=== PATIENT | female | born 1960 | race Caucasian/White ===

== ENCOUNTER 2017-03-24 10:20 | Outpatient (CLI) | payer OTHER ==
--- NOTE | 2017-03-24 13:27 | MRI Report ---
EXAM: RIGHT SHOULDER MRI ARTHROGRAM WITH CONTRAST EXAM DATE: 03/24/2017 10:46 AM. CLINICAL HISTORY: RT SHOULDER PAIN W/MASS. COMPARISON: None. TECHNIQUE: Multiplanar, multisequence T1-weighted and fluid-sensitive sequences of the shoulder after an arthrographic injection of dilute gadolinium, dictated under a separate exam. Other: None. FINDINGS: Rotator cuff: Moderate thickening and increased intrasubstance signal involving the distal supraspina tus and infraspinatus. No discrete rotator cuff tear identified. No rotator cuff muscle atrophy or fa tty replacement. Long head biceps tendon: Intact demonstrating normal course, signal and morphology. Labrum: Intact. No tear identified. Bones and articular surfaces: Intact. No significant articular cartilage defect. Acromial clavicular joint: Moderate degenerative change. Diverticula acromion. IMPRESSION: 1. Moderate supraspinatus and infraspinatus tendinosis. 2. Moderate degenerative change at the acromioclavicular joint. [facility] MUSCULOSKELETAL RADIOLOGY SECTION Referring Provider Line: [phone] SITE ID: [id number]
--- NOTE | 2017-03-28 10:27 | XRAY Report ---
RIGHT SHOULDER ARTHROGRAM NEEDLE PLACEMENT: 03/24/2017 CLINICAL HISTORY: Right shoulder pain. TECHNIQUE: A PAR conference was held and informed consent was obtained. The patient's right shoulder was sterilely prepped with Chloraprep. Sterile technique was used throughout the exam. 5 mL of 1% Xylocaine was used for local anesthesia in the skin and subcutaneous tissues of the right shoulder. Under fluoroscopic guidance, a 22-gauge 2.5 inch spinal needle was placed into the right shoulder joint. 0.5 mL of Conray 300 was placed into the right shoulder joint to verify the needle was within it. Once the needle position was documented in the right shoulder joint, 10 mL of a mixture containing 10 mL of Conray 300, 10 mL of 1% Xylocaine, and 0.1 mL of gadolinium was placed into the right shoulder joint. The needle was then removed. The patient was sent to the MRI suite for the right shoulder MRI arthrogram imaging. FLUORO TIME WAS 1 MINUTE 27 SECONDS. NUMBER OF IMAGES 1 IMAGE. IMPRESSION: SUCCESSFUL RIGHT SHOULDER ARTHROGRAM. YINA
== END 2017-03-24 10:21 | disposition home or self-care (01) ==
LOC: DI 10:20
DX: M19.011 Primary osteoarthritis, right shoulder (principal); M67.911 Unspecified disorder of synovium and tendon, right shoulder
CPT/HCPCS: 23350; 73222; 77002; Q9961

== ENCOUNTER 2017-09-17 10:57 | Emergency (ER) | payer OTHER ==
[2017-09-17 12:04] LABS: BILIRUBIN,URINE NEGATIVE (NEGATIVE); PH,URINE 6.5 PH (5.0-7.5)
[2017-09-17 12:05] LABS: UA CHARGE (STRIP ONLY) YES; UR CULTURE IF IND NOT INDICATED
[2017-09-17] MEDS ORDERED: ACETAMINOPHEN 1,000 MG/100 ML 100 ML IV STA (12:57)
--- NOTE | 2017-09-17 12:57 | ED Physician Documentation ---
History of Present Illness - Stated complaint Stated Complaint: ABD PX - Chief complaint Chief Complaint: Abd Pain - Additonal information Additional information: hx from pt dx diverticulitis by non con CT 3 weeks ago took cirpo flagyl pain gone now sx returned LLQ pain no fever no NVD no bloody stool pshx hyst Review of Systems Constitutional: denies: Fever, Chills Cardiac: denies: Chest pain / pressure Respiratory: denies: Dyspnea GI: reports: Abdominal Pain. 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, LEEP (Cervical surgery) HEENT: Tonsil/Adenoidectomy - Present Medications Home Medications: Ambulatory Orders Medication Instructions Recorded Confirmed Atorvastatin Calcium [Lipitor] 20 mg PO DAILY 11/02/15 09/17/17 Epinephrine [Epipen 2-Saman] 1 unit IM PRN PRN 11/02/15 09/17/17 Loratadine [Claritin] 10 mg PO DAILY 11/02/15 09/17/17 Methotrexate 2.5 mg PO DAILY 11/02/15 09/17/17 [place]-3/Dha/Epa/Fish Oil [Fish Oil 1 tab PO DAILY 11/02/15 09/17/17 [place]-3 Softgel] Venlafaxine [Effexor] 75 mg PO DAILY 11/02/15 09/17/17 raNITIdine [Zantac] 150 mg PO DAILY 11/02/15 09/17/17 Estrogens, Conjugated [Premarin] 0.625 mg PO DAILY 08/29/17 09/17/17 Folic Acid 3 tab PO DAILY 08/29/17 09/17/17 metFORMIN [Glucophage] 1,000 mg PO DAILY 08/29/17 09/17/17 Ciprofloxacin HCl [Cipro] 500 mg PO BID #20 tablet 09/17/17 Docusate Sodium 250Mg Capsule 250 mg PO DAILY #30 capsule 09/17/17 [Colace 250Mg Capsule] Metronidazole [Flagyl] 500 mg PO BID #20 tablet 09/17/17 Saccharomyces Boulardii [Florastor] 500 mg PO BID #40 capsule 09/17/17 - Allergies Allergies/Adverse Reactions: Allergies Allergy/AdvReac Type Severity Reaction Status Date / Time codeine Allergy Unknown Verified 09/17/17 11:02 iodine Allergy Anaphylaxis Verified 09/17/17 11:02 naproxen Allergy Hives Verified 09/17/17 11:02 shellfish derived Allergy Anaphylaxis Verified 09/17/17 11:02 - Social History Does the pt smoke?: No Smoking Status: Never smoker Does the pt drink ETOH?: Yes Does the pt have substance abuse?: No PD ED PE NORMAL - Vitals Vital signs reviewed: Yes - General General: Alert and oriented X 3 - Neck Neck: Supple, no meningeal sign - Cardiac Cardiac: RRR - Respiratory Respiratory: No respiratory distress, Clear bilaterally - Abdomen Abdomen: Soft, Other (TTP across lower abd L > R with guarding and some rebound) - Derm Derm: Normal color - Neuro Neuro: Alert and oriented X 3 Results - Vitals Vitals: Vital Signs - 24 hr 09/17/17 09/17/17 09/17/17 10:59 12:37 14:46 Temperature 36.5 C Heart Rate 84 85 69 Respiratory 16 16 16 Rate Blood Pressure 153/90 H 144/91 H 127/76 O2 Saturation 99 99 96 Oxygen O2 Source Room air - Labs Labs: Laboratory Tests 09/17/17 09/17/17 09/17/17 11:55 12:45 12:45 WBC 10.7 RBC 4.75 Hgb 13.5 Hct 40.8 MCV 85.9 MCH 28.4 MCHC 33.0 RDW 14.9 Plt Count 321 MPV 7.3 L Neut # 8.1 H Lymph # 1.9 Peach # 0.6 Eos # 0.1 Baso # 0.0 Absolute Nucleated RBC 0.01 Nucleated RBC % 0.0 Sodium 137 Potassium 3.9 Chloride 100 L Carbon Dioxide 25 Anion Gap 12.0 BUN 12 Creatinine 0.7 Estimated GFR (MDRD) 87 L Glucose 98 Calcium 9.8 Total Bilirubin 1.1 H AST 25 ALT 35 Alkaline Phosphatase 55 Total Protein 7.9 Albumin 4.7 Globulin 3.2 Albumin/Globulin Ratio 1.5 Lipase 29 Urine Color YELLOW Urine Clarity CLEAR Urine pH 6.5 Ur Specific [place] <=1.005 Urine Protein NEGATIVE Urine Glucose (UA) NEGATIVE Urine Ketones NEGATIVE Urine Occult Blood NEGATIVE Urine Nitrite NEGATIVE Urine Bilirubin NEGATIVE Urine Urobilinogen 0.2 (NORMAL) Ur Leukocyte Esterase NEGATIVE Ur Microscopic Review NOT INDICATED Urine Culture Comments NOT INDICATED Departure - Departure Disposition: 01 Home, Self Care Clinical Impression: Diverticulitis of gastrointestinal tract Condition: Good Instructions: ED Diverticulitis Follow-Up: Junior Kinsey MD [Primary Care Provider] - Prescriptions: Ciprofloxacin HCl [Cipro] 500 mg PO BID #20 tablet Docusate Sodium 250Mg Capsule [Colace 250Mg Capsule] 250 mg PO DAILY #30 capsule Metronidazole [Flagyl] 500 mg PO BID #20 tablet Saccharomyces Boulardii [Florastor] 500 mg PO BID #40 capsule Comments: The CT scan shows you still have some diverticulitis - but no abscess or perforation. So you do not need to be admitted to the hospital or have surgery It is OK for you to go home on antibiotics again - because you take methotrexate , the only antibiotic combination that would not interact was cipro and flagyl again. Cipro can have some serious side effects including nerve and tendon injuries - so please avoid strenuous exercise and if you develop any unusual pain or joint problems, stop the cipro and seek medical attention Recommend a clear liquid diet for 48 hr to rest your bowels and then a bland diet without any small hard crunchy foods such as popcorn, raw carrots, tortilla chips and seeds. A stool softener will help ease stress on your colon as well. Tylenol as needed for the pain Follow up with your PMD for a recheck within a week, You should also get a colonoscopy of you have not had one previously Return if worse
[2017-09-17 13:07] LABS: BASOPHILS % (AUTO) 0.3 %; EOSINOPHILS # (AUTO) 0.1 10^3/uL (0.0-0.7); EOSINOPHILS % (AUTO) 0.7 %; HCT - HEMATOCRIT 40.8 % (37.0-47.0); HGB - HEMOGLOBIN 13.5 g/dL (12.0-16.0); LYMPHOCYTES # (AUTO) 1.9 10^3/uL (1.5-3.5); LYMPHOCYTES % (AUTO) 18.1 %; MEAN CORPUSCULAR HEMOGLOBIN 28.4 pg (27.0-31.0); MEAN CORPUSCULAR VOLUME 85.9 fL (81.0-99.0); MEAN PLATELET VOLUME 7.3 fL (7.9-10.8); MONOCYTES # (AUTO) 0.6 10^3/uL (0.0-1.0); MONOCYTES % (AUTO) 5.3 %; NEUTROPHILS # (AUTO) 8.1 10^3/uL (1.5-6.6); NEUTROPHILS % (AUTO) 75.6 %; RED BLOOD COUNT 4.75 10^6/uL (4.20-5.40); RED CELL DISTRIBUTION WIDTH 14.9 % (12.0-15.0); UNCORRECTED WHITE BLOOD COUNT 10.7 x10^3/uL; WHITE BLOOD COUNT 10.7 x10^3/uL (4.8-10.8)
[2017-09-17] MEDS ORDERED: ACETAMINOPHEN 1,000 MG/100 ML 100 ML IV ONE (13:09)
[2017-09-17 13:21] LABS: ALBUMIN/GLOBULIN RATIO 1.5 (1.0-2.2); BILIRUBIN,TOTAL 1.1 mg/dL (0.2-1.0); CALCIUM 9.8 mg/dL (8.5-10.3); CREATININE 0.7 mg/dL (0.4-1.0); POTASSIUM 3.9 mmol/L (3.5-5.0); TOTAL PROTEIN 7.9 g/dL (6.7-8.2)
[2017-09-17 14:47] VITALS: BP 127/76
--- NOTE | 2017-09-17 14:55 | CT Preliminary Report ---
Exam: CT ABDOMEN/PELVIS W/O IMPRESSION: 1. There is distal colon diverticulosis and possible mild diverticulitis. The CT appearance of the di stal colon is improved as compared to prior study. There is no evidence of perforation or pericolonic abscess. 2. Otherwise negative noncontrast CT of the abdomen and pelvis. SITE ID: [id number]
--- NOTE | 2017-09-17 14:58 | CT Report ---
EXAM: CT ABDOMEN AND PELVIS EXAM DATE: 09/17/2017 02:35 PM. CLINICAL HISTORY: Left lower quadrant pain. COMPARISONS: 08/29/2017. TECHNIQUE: Routine axial helical CT imaging was performed through the abdomen and pelvis without IV c ontrast. Reconstructions: Coronal and sagittal. In accordance with CT protocol optimization, one or more of the following dose reduction techniques w ere utilized for this exam: automated exposure control, adjustment of mA and/or KV based on patient s ize, or use of iterative reconstructive technique. FINDINGS: Lung Bases: Unremarkable. Abdominal Organs: Noncontrast images of the abdominal organs are grossly unremarkable. Gallbladder/bile ducts: No significant abnormalities. Peritoneal Cavity: There is distal colon diverticulosis. There is a small amount of fluid within the low left paracolic gutter (image 58 series 3). There is some mild fat stranding adjacent to the mid s igmoid colon. There is no evidence of pericolonic abscess. No intraperitoneal free air. No enlarged m esenteric or retroperitoneal lymph nodes. The appendix is normal. Pelvic Organs: No bladder stones or wall thickening. Noncontrast images of the visualized pelvic orga ns are unremarkable. Vasculature: Unremarkable. Other: There is a small fat-containing supraumbilical hernia. No evidence of associated inflammation. There are anterior peritoneum surgical clips. IMPRESSION: 1. There is distal colon diverticulosis and possible mild diverticulitis. The CT appearance of the di stal colon is improved as compared to prior study. There is no evidence of perforation or pericolonic abscess. 2. Otherwise negative noncontrast CT of the abdomen and pelvis. Referring Provider Line: [phone] SITE ID: [id number]
== END 2017-09-17 15:48 | disposition home or self-care (01) ==
LOC: ED 10:57
DX: K57.92 Diverticulitis of intestine, part unspecified, without perforation or abscess without bleeding (principal); I10 Essential (primary) hypertension; E78.00 Pure hypercholesterolemia, unspecified; E11.9 Type 2 diabetes mellitus without complications; Z79.84 Long term (current) use of oral hypoglycemic drugs
CPT/HCPCS: 36415; 74176; 80053; 81003; 83690; 85025; 96365; 99283; 99284; J0131; 81001; 87086

== ENCOUNTER 2017-10-03 07:37 | Day surgery (SDC) | payer OTHER ==
[2017-10-03] MEDS ORDERED: LACTATED RINGERS 1,000 ML IV ONE (07:47)
[2017-10-03] MEDS ORDERED: ceFAZolin 2 GM/50 ML 2 GM/50 ML BAG IV ONE (07:50)
[2017-10-03 07:55] VITALS: BP 127/79
== END 2017-10-03 07:38 | disposition home or self-care (01) ==
LOC: SDS 07:37
PROVIDERS: ATTEND Orthopaedic Surgery
DX: Z53.9 Procedure and treatment not carried out, unspecified reason (principal)

== ENCOUNTER 2019-01-08 11:03 | Emergency (ER) | payer OTHER ==
[2019-01-08 12:02] LABS: BILIRUBIN,URINE NEGATIVE (NEGATIVE); GLUCOSE, URINE (UA) NEGATIVE (NEGATIVE); KETONES,URINE (UA) NEGATIVE (NEGATIVE); LEUKOCYTE ESTERASE, URINE SMALL (NEGATIVE); NITRITE,URINE POSITIVE (NEGATIVE); OCCULT BLOOD,URINE LARGE (NEGATIVE); PH,URINE 6.5 PH (5.0-7.5); PROTEIN,URINE TRACE mg/dL (NEGATIVE); UROBILINOGEN,URINE 0.2 (NORMAL) E.U./dL (NORMAL)
[2019-01-08 12:05] LABS: CLARITY,URINE CLOUDY (CLEAR)
[2019-01-08 12:14] LABS: RBC,URINE TNTC /HPF (0-5); SQUAMOUS EPITHELIAL CELL,UR FEW Squamous (<= Few)
[2019-01-08 12:15] LABS: BACTERIA,URINE Few /HPF (None Seen)
--- NOTE | 2019-01-08 13:47 | ED Physician Documentation ---
History of Present Illness - Stated complaint Stated Complaint: FEMALE - Chief complaint Chief Complaint: UTI - History obtained from History obtained from: Patient - History of Present Illness Timing: Today Pain level max: 0 Pain level now: 0 - Additonal information Additional information: 58-year-old female presents to the emergency department with cough congestion and body aches for the past 4 days. This morning noted dysuria, urinary frequency and blood in the urine. Has had her flu shot this year. Nothing makes it better or worse. Review of Systems Constitutional: reports: Chills. 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: Hysterectomy, LEEP (Cervical surgery) HEENT: Tonsil/Adenoidectomy - Present Medications Home Medications: Ambulatory Orders Medication Instructions Recorded Confirmed Atorvastatin Calcium [Lipitor] 40 mg PO DAILY 11/02/15 01/08/19 EPINEPHrine [Epipen 2-Saman] 1 unit IM PRN PRN 11/02/15 01/08/19 Loratadine [Claritin] 10 mg PO DAILY 11/02/15 01/08/19 Methotrexate 25 mg PO DAILY 11/02/15 01/08/19 [place]-3/Dha/Epa/Fish Oil [Fish Oil 1 tab PO DAILY 11/02/15 01/08/19 [place]-3 Softgel] Venlafaxine [Effexor] 75 mg PO DAILY 11/02/15 01/08/19 Estrogens, Conjugated [Premarin] 0.625 mg PO DAILY 08/29/17 01/08/19 Folic Acid 3 tab PO DAILY 08/29/17 01/08/19 Cephalexin [Keflex] 500 mg PO Q6H #20 capsule 01/08/19 Phenazopyridine HCl [Pyridium] 200 mg PO TID PRN #6 tablet 01/08/19 Pioglitazone [Actos] 1 tab PO DAILY 01/08/19 01/08/19 - Allergies Allergies/Adverse Reactions: Allergies Allergy/AdvReac Type Severity Reaction Status Date / Time codeine Allergy Unknown Verified 01/08/19 11:09 iodine Allergy Anaphylaxis Verified 01/08/19 11:09 naproxen Allergy Hives Verified 01/08/19 11:09 shellfish derived Allergy Anaphylaxis Verified 01/08/19 11:09 - Social History Does the pt smoke?: No Smoking Status: Never smoker Does the pt drink ETOH?: Yes Does the pt have substance abuse?: No - Immunizations Immunizations are current?: Yes - POLST Patient has POLST: No PD ED PE NORMAL - Vitals Vital signs reviewed: Yes - General General: Alert and oriented X 3, No acute distress - HEENT HEENT: Moist mucous membranes, Pharynx benign - Neck Neck: Supple, no meningeal sign - Cardiac Cardiac: RRR, Strong equal pulses - Respiratory Respiratory: No respiratory distress, Clear bilaterally - Abdomen Abdomen: Soft, Non tender, Non distended - Back Back: No CVA TTP - Derm Derm: Warm and dry - Neuro Neuro: Alert and oriented X 3 Results - Vitals Vitals: Vital Signs - 24 hr 01/08/19 11:07 Temperature 36.8 C Heart Rate 78 Respiratory 18 Rate Blood Pressure 159/83 H O2 Saturation 99 Oxygen O2 Source Room air - Labs Labs: Laboratory Tests 01/08/19 01/08/19 11:14 11:24 Urine Color YELLOW Urine Clarity CLOUDY Urine pH 6.5 Ur Specific [place] 1.020 Urine Protein TRACE Urine Glucose (UA) NEGATIVE Urine Ketones NEGATIVE Urine Occult Blood LARGE H Urine Nitrite POSITIVE H Urine Bilirubin NEGATIVE Urine Urobilinogen 0.2 (NORMAL) Ur Leukocyte Esterase SMALL H Urine RBC TNTC H Urine WBC 11-25 H Ur Squamous Epith Cells FEW Squamous Urine Bacteria Few Ur Microscopic Review INDICATED Urine Culture Comments INDICATED Influenza A (Rapid) Negative Influenza B (Rapid) Negative PD MEDICAL DECISION MAKING - ED course Complexity details: reviewed results, considered differential, d/w patient ED course: 58-year-old female with a viral syndrome as well as a UTI. Will place on antibiotics for the UTI. No evidence of pyelonephritis. Patient is well- appearing, nontoxic. Patient counseled regarding signs and symptoms for which I believe and urgent re-evaluation would be necessary. Patient with good understanding of and agreement to plan and is comfortable going home at this time This document was made in part using voice recognition software. While efforts are made to proofread this document, sound alike and grammatical errors may occur. Departure - Departure Disposition: Home, Self Care Clinical Impression: Viral syndrome UTI (urinary tract infection) Qualifiers: Urinary tract infection type: acute cystitis Hematuria presence: with hematuria Qualified Code(s): N30.01 - Acute cystitis with hematuria Condition: Good Instructions: ED UTI Cystitis Female, ED Viral Syndrome Follow-Up: TG HARKINS DO [Primary Care Provider] - Within 1 week Prescriptions: Cephalexin [Keflex] 500 mg PO Q6H #20 capsule Phenazopyridine HCl [Pyridium] 200 mg PO TID PRN #6 tablet PRN Reason: dysuria Comments: Return if you worsen. Take all anitbiotics until gone.
[2019-01-08 13:54] VITALS: BP 148/80
== END 2019-01-08 13:53 | disposition home or self-care (01) ==
LOC: ED 11:03
DX: N30.01 Acute cystitis with hematuria (principal); B34.9 Viral infection, unspecified; I10 Essential (primary) hypertension; E11.9 Type 2 diabetes mellitus without complications
CPT/HCPCS: 81001; 81003; 87077; 87086; 87181; 87275; 87276; 99283

== ENCOUNTER 2019-06-16 11:58 | Emergency (ER) | payer OTHER ==
[2019-06-16 12:40] VITALS: BP 174/82
--- NOTE | 2019-06-16 16:10 | ED Physician Documentation ---
PD HPI NECK PAIN - Stated complaint Stated Complaint: NECK PAIN - Chief complaint Chief Complaint: General - History obtained from History obtained from: Patient - History of Present Illness Timing - onset: Other (She woke with right-sided neck pain about 5 days ago which then progressed with pain down towards the right shoulder and has difficulty with rotation of the neck. She is been taking naproxen with partial but incomplete relief. She denies weakness, numbness, tingling of the arms. No fevers. No facial pain. 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, LEEP (Cervical surgery) HEENT: Tonsil/Adenoidectomy - Present Medications Home Medications: Ambulatory Orders Medication Instructions Recorded Confirmed Atorvastatin Calcium [Lipitor] 40 mg PO DAILY 11/02/15 01/08/19 EPINEPHrine [Epipen 2-Saman] 1 unit IM PRN PRN 11/02/15 01/08/19 Loratadine [Claritin] 10 mg PO DAILY 11/02/15 01/08/19 Methotrexate 25 mg PO DAILY 11/02/15 01/08/19 [place]-3/Dha/Epa/Fish Oil [Fish Oil 1 tab PO DAILY 11/02/15 01/08/19 [place]-3 Softgel] Venlafaxine [Effexor] 75 mg PO DAILY 11/02/15 01/08/19 Estrogens, Conjugated [Premarin] 0.625 mg PO DAILY 08/29/17 01/08/19 Folic Acid 3 tab PO DAILY 08/29/17 01/08/19 Cephalexin [Keflex] 500 mg PO Q6H #20 capsule 01/08/19 Phenazopyridine HCl [Pyridium] 200 mg PO TID PRN #6 tablet 01/08/19 Pioglitazone [Actos] 1 tab PO DAILY 01/08/19 01/08/19 Cyclobenzaprine [Flexeril] 10 mg PO TID PRN #20 tablet 06/16/19 predniSONE [Deltasone] 20 mg PO [id number] #21 tab 06/16/19 - Allergies Allergies/Adverse Reactions: Allergies Allergy/AdvReac Type Severity Reaction Status Date / Time codeine Allergy Unknown Verified 06/16/19 12:40 iodine Allergy Anaphylaxis Verified 06/16/19 12:40 naproxen Allergy Hives Verified 06/16/19 12:40 shellfish derived Allergy Anaphylaxis Verified 06/16/19 12:40 - Social History Does the pt smoke?: No Smoking Status: Never smoker Does the pt drink ETOH?: Yes Does the pt have substance abuse?: No - Immunizations Immunizations are current?: Yes - POLST Patient has POLST: No PD ED PE NORMAL - Vitals Vital signs reviewed: Yes - General General: Alert and oriented X 3, No acute distress - Neck Neck: No bony TTP (Right-sided sternocleidomastoid tenderness and difficulty with rotation of the neck but not flexion or extension of the neck. She has equal bilateral upper extremity supervisor inspection strength, flexion extension of the wrist, thumb extension, and interosseous strength. Normal and symmetric sensation throughout all parts of the upper extremities.) - Neuro Neuro: Alert and oriented X 3, director cpg 2-12 intact, No motor deficit, No sensory deficit Results - Vitals Vitals: Vital Signs - 24 hr 06/16/19 12:36 Temperature 36.4 C L Heart Rate 61 Respiratory 16 Rate Blood Pressure 174/82 H O2 Saturation 97 Oxygen O2 Source Room air PD MEDICAL DECISION MAKING - ED course ED course: 58-year-old woman presents with right-sided neck muscle spasm. No evidence of radiculopathy, no midline bony tenderness. Departure - Departure Disposition: 01 Home, Self Care Clinical Impression: Neck muscle spasm Condition: Good Record reviewed to determine appropriate education?: Yes Instructions: ED Spasm Neck No Injury Prescriptions: Cyclobenzaprine [Flexeril] 10 mg PO TID PRN #20 tablet PRN Reason: Spasms predniSONE [Deltasone] 20 mg PO [id number] #21 tab Comments: You should get better over the next few days, use heat and gentle stretching. Return for new or worsening symptoms. Follow-up with your doctor early next week if not better. Do not drink or drive while taking the prescription muscle relaxers. You can continue the naproxen that your doctor gave you since you are not having any bad reactions to it. Your blood pressure was elevated today on check into the emergency department. This does not mean that you have hypertension, it is a common phenomenon to come to the emergency department and have elevated blood pressure. I recommend that you see your primary care physician within the week to have it rechecked when you are feeling better. Forms: Activity restrictions
== END 2019-06-16 16:16 | disposition home or self-care (01) ==
LOC: ED 11:58
DX: M62.838 Other muscle spasm (principal); M54.2 Cervicalgia; M25.511 Pain in right shoulder; I10 Essential (primary) hypertension; E11.9 Type 2 diabetes mellitus without complications; Z79.84 Long term (current) use of oral hypoglycemic drugs
CPT/HCPCS: 99282; 99283

== ENCOUNTER 2020-04-10 13:50 | Emergency (ER) | payer OTHER ==
--- NOTE | 2020-04-10 15:00 | XRAY Report ---
Reason: fall, R wrist pain Procedure Date: 04/10/2020 Accession Number: [id number] / [id number] Procedure: XR - Wrist 4 View RT CPT Code: Final Report FULL RESULT: PROCEDURE: Wrist 4 View RT INDICATIONS: fall, R wrist pain TECHNIQUE: 4 views of the wrist were acquired. COMPARISON: None FINDINGS: Bones: No acute fracture is seen. Widening at the distal radioulnar joint articulation is noted concerning for subluxation involving distal radioulnar joint. No vinicius dislocation is appreciated. No suspicious bony lesions. Scaphoid view: Scaphoid is grossly intact. Soft tissues: No suspicious soft tissue calcifications. IMPRESSION: Finding is suggestive of acute injury involving distal radioulnar joint with widening of joint space suggestive of mild subluxation. No definite vinicius dislocation. No acute fracture. Reviewed by: Peter Martinez MD on 04/10/2020 2:59 PM PDT Approved by: Peter Martinez MD on 04/10/2020 2:59 PM PDT Station ID: [id number]
--- NOTE | 2020-04-10 15:37 | ED Physician Documentation ---
PD HPI UPPER EXT INJURY - Stated complaint Stated Complaint: RT WRIST INJURY - Chief complaint Chief Complaint: Ext Problem - History obtained from History obtained from: Patient - History of Present Illness Location: Right, Wrist Type of injury: Fall Where injury occurred: Home Timing - onset: How many weeks ago (1) Timing - duration: Weeks (1) Timing - details: Gradual onset Pain level max: 5 Pain level now: 3 Improved by: Rest, Ice, Immobilization Worsened by: Moving, Palpating Associated symptoms: No: Weakness, Numbness, Tingling, Swelling - Additonal information Additional information: Patient states that she fell onto the right wrist approximately a week ago. Worse with movement and better with rest. No swelling. Neurovascular intact. Feels better with a Velcro brace on. 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: Hysterectomy, LEEP (Cervical surgery) HEENT: Tonsil/Adenoidectomy - Present Medications Home Medications: Ambulatory Orders Medication Instructions Recorded Confirmed Atorvastatin Calcium [Lipitor] 40 mg PO DAILY 11/02/15 01/08/19 EPINEPHrine [Epipen 2-Saman] 1 unit IM PRN PRN 11/02/15 01/08/19 Loratadine [Claritin] 10 mg PO DAILY 11/02/15 01/08/19 Methotrexate 25 mg PO DAILY 11/02/15 01/08/19 Venlafaxine [Effexor] 75 mg PO DAILY 11/02/15 01/08/19 Estrogens, Conjugated [Premarin] 0.625 mg PO DAILY 08/29/17 01/08/19 Folic Acid 3 tab PO DAILY 08/29/17 01/08/19 Pioglitazone [Actos] 1 tab PO DAILY 01/08/19 01/08/19 - Allergies Allergies/Adverse Reactions: Allergies Allergy/AdvReac Type Severity Reaction Status Date / Time codeine Allergy Unknown Verified 04/10/20 13:55 iodine Allergy Anaphylaxis Verified 04/10/20 13:55 naproxen Allergy Hives Verified 04/10/20 13:55 shellfish derived Allergy Anaphylaxis Verified 04/10/20 13:55 - Social History Does the pt smoke?: No Smoking Status: Never smoker Does the pt drink ETOH?: Yes Does the pt have substance abuse?: No - Immunizations Immunizations are current?: Yes - POLST Patient has POLST: No PD ED PE NORMAL - Vitals Vital signs reviewed: Yes - General General: Alert and oriented X 3, No acute distress - HEENT HEENT: Moist mucous membranes - Derm Derm: Warm and dry - Extremities Extremities: Other (R hand/wrist - Tender to palpation over the distal radius and ulna. No snuffbox tenderness. No gross deformity. Neurovascular intact. Limited range of motion secondary to pain. No swelling.) - Neuro Neuro: Alert and oriented X 3 Results - Vitals Vitals: Vital Signs - 24 hr 04/10/20 04/10/20 13:55 15:41 Temperature 36.5 C Heart Rate 74 75 Respiratory 16 18 Rate Blood Pressure 169/96 H 155/94 H O2 Saturation 99 100 Oxygen O2 Source Room air - Rads (name of study) Right wrist x-ray Radiology: Prelim report reviewed, EMP read contemporaneously, See rad report (Finding is suggestive of acute injury involving distal radioulnar joint with widening of joint space suggestive of mild subluxation. No definite vinicius dislocation. No acute fracture. ) PD MEDICAL DECISION MAKING - ED course Complexity details: reviewed results, re-evaluated patient, considered differential, d/w patient ED course: Patient with a right wrist sprain, possible ligamentous injury of the distal radial ulnar joint. She is in the Velcro wrist splint already. We will maintain her in this and have her follow-up with orthopedics later this week for repeat evaluation. Patient counseled regarding signs and symptoms for which I believe and urgent re-evaluation would be necessary. Patient with good understanding of and agreement to plan and is comfortable going home at this time This document was made in part using voice recognition software. While efforts are made to proofread this document, sound alike and grammatical errors may mohiniu r. Departure - Departure Disposition: 01 Home, Self Care Clinical Impression: Right wrist sprain Qualifiers: Encounter type: initial encounter Qualified Code(s): S63.501A - Unspecified sprain of right wrist, initial encounter Condition: Good Instructions: ED Sprain Wrist Follow-Up: TG HARKINS, [Primary Care Provider] - Within 1 week Comments: Wear the splint until released by orthopedics. Your x-ray read is below. You can use Motrin or Tylenol as needed for pain. Finding is suggestive of acute injury involving distal radioulnar joint with widening of joint space suggestive of mild subluxation. No definite vinicius dislocation. No acute fracture. Discharge Date/Time: 04/10/20 15:44
[2020-04-10 15:42] VITALS: BP 155/94
== END 2020-04-10 15:44 | disposition home or self-care (01) ==
LOC: ED 13:50
DX: S63.501A Unspecified sprain of right wrist, initial encounter (principal); W19.XXXA Unspecified fall, initial encounter; Y92.009 Unspecified place in unspecified non-institutional (private) residence as the place of occurrence of the external cause; I10 Essential (primary) hypertension; E11.9 Type 2 diabetes mellitus without complications; Z79.84 Long term (current) use of oral hypoglycemic drugs
CPT/HCPCS: 99282; 99283

== ENCOUNTER 2020-07-04 11:17 | Outpatient (CLI) | payer OTHER ==
--- NOTE | 2020-07-05 12:08 | Mammography Report ---
BILATERAL DIGITAL SCREENING MAMMOGRAM 3D/2D: 07/04/2020 CLINICAL: Routine screening. Comparison is made to exams dated: 06/21/2019 mammogram, 06/25/2018 mammogram, and 06/10/2017 mammogram - [facility]. There are scattered fibroglandular elements in both breasts. No significant masses, calcifications, or other findings are seen in either breast. There has been no significant interval change. IMPRESSION: NEGATIVE There is no mammographic evidence of malignancy. A 1 year screening mammogram is recommended. This exam was interpreted at Station ID: [id number]. NOTE: For mammograms, a report in lay terms will be sent to the patient. Approximately 15% of breast malignancies will not be visualized mammographically. In the management of a palpable breast mass, a negative mammogram must not discourage biopsy of a clinically suspicious lesion. Electronically Signed By: Dario Ambrose M.D. ar/penrad:07/04/2020 14:24:34 ACR BI-RADS Category 1: Negative 3341F PARENCHYMAL PATTERN: (A) - The breast(s) demonstrate(s) scattered fibroglandular densities. BI-RADS CATEGORY: (1) - 1 RECOMMENDATION: (ANNUAL) - Recommend routine annual screening mammography. [id number] 1 year screening LATERALITY: (B)
== END 2020-07-04 11:18 | disposition home or self-care (01) ==
LOC: DI.N 11:17
PROVIDERS: ATTEND General Practice
DX: Z12.31 Encounter for screening mammogram for malignant neoplasm of breast (principal)
CPT/HCPCS: 77063; 77067

== ENCOUNTER 2021-07-10 09:19 | Outpatient (CLI) | payer OTHER ==
--- NOTE | 2021-07-11 12:55 | Mammography Report ---
BILATERAL DIGITAL SCREENING MAMMOGRAM 3D/2D: 07/10/2021 CLINICAL: Routine screening. Comparison is made to exams dated: 07/04/2020 mammogram - [facility], 06/21/2019 mamm ogram, 06/25/2018 mammogram, 06/10/2017 mammogram, and 07/05/2016 mammogram - [facility]. There are scattered fibroglandular elements in both breasts. No significant masses, calcifications, or other findings are seen in either breast. There has been no significant interval change. IMPRESSION: NEGATIVE There is no mammographic evidence of malignancy. A 1 year screening mammogram is recommended. This exam was interpreted at Station ID: [id number]. NOTE: For mammograms, a report in lay terms will be sent to the patient. Approximately 15% of breast malignancies will not be visualized mammographically. In the management of a palpable breast mass, a negative mammogram must not discourage biopsy of a clinically suspicious lesion. Electronically Signed By: Ankit Martin M.D. [facility] [place]/penrad:07/10/2021 10:42:41 ACR BI-RADS Category 1: Negative 3341F PARENCHYMAL PATTERN: (A) - The breast(s) demonstrate(s) scattered fibroglandular densities. BI-RADS CATEGORY: (1) - 1 RECOMMENDATION: (ANNUAL) - Recommend routine annual screening mammography. [id number] 1 year screening LATERALITY: (B)
== END 2021-07-10 09:20 | disposition home or self-care (01) ==
LOC: DI.N 09:19
DX: Z12.31 Encounter for screening mammogram for malignant neoplasm of breast (principal)

== ENCOUNTER 2021-08-20 08:37 | Outpatient (CLI) | payer OTHER ==
--- NOTE | 2021-08-20 12:08 | MRI Report ---
PROCEDURE: Knee LT W/O INDICATIONS: LEFT KNEE INSTABILITY, EFFUSION TECHNIQUE: Noncontrast sagittal PD fast spin echo and T2 fast spin echo with fat saturation, sagittal 3-D gradie nt sequence with fat saturation; coronal T1 spin echo and PD fast spin echo with fat saturation, and axial PD fast spin echo with fat saturation through the knee. COMPARISON: None. FINDINGS: Image quality: Excellent. Menisci: There is suggestion of subtle oblique tear involving posterior horn of medial meniscus exten ding to inferior articulating surface. There is no evidence of focal lateral meniscal tear. The menis emil root ligaments appear intact. Cruciate ligaments: The anterior and posterior cruciate ligaments appear intact. Medial structures: There is low-grade MCL sprain. The posterior oblique ligament, semimembranosus te ndon insertions, and oblique popliteal ligament, and meniscocapsular junction appear intact. Visuali zed portions of the pes anserinus tendons appear normal. No abnormal bursal fluid. Lateral structures: The lateral collateral ligament, long and short heads of the biceps femoris tend on appear intact. The popliteus tendon appears normal; the popliteofibular ligament appears intact. The posterosuperior and anteroinferior popliteomeniscal fascicles appear intact. The arcuate and fa bellofibular ligaments appear intact, around the lateral inferior geniculate artery. Iliotibial band appears normal. Anterior structures: The quadriceps and patellar tendons appear intact. Patellar alignment is magdiel l. No femoral trochlear dysplasia or ventral trochlear prominence. No edema in the infrapatellar fa t pad. Bones and cartilage: No bone marrow contusions or fractures. Mild to moderate tricompartmental osteo arthritis and chondromalacia is seen more prominent in medial femoral tibial compartment. Joint space: There is small amount of joint fluid, no gross loose body. A small popliteal cyst is se en. Normal appearing synovial plicae are incidentally noted. IMPRESSION: 1. Mild to moderate tricompartmental osteoarthritis and chondromalacia more prominent in medial femor al tibial compartment. 2. Small joint effusion and a small popliteal cyst. 3. Suggestion of subtle oblique tear involving posterior horn of medial meniscus extending to inferio r articulating surface. No gross focal lateral meniscal tear. 4. Cruciate ligaments are intact. Low-grade MCL sprain. Reviewed by: Peter Martinez MD on 08/20/2021 12:07 PM PDT Approved by: Peter Martinez MD on 08/20/2021 12:07 PM PDT Station ID: [id number]
== END 2021-08-20 08:38 | disposition home or self-care (01) ==
LOC: DI 08:37
PROVIDERS: ATTEND Family Medicine
DX: M17.12 Unilateral primary osteoarthritis, left knee (principal); M25.462 Effusion, left knee; M71.22 Synovial cyst of popliteal space [Baker], left knee; S83.412A Sprain of medial collateral ligament of left knee, initial encounter

== ENCOUNTER 2021-08-24 13:04 | Emergency (ER) | payer OTHER ==
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
[2021-08-24 17:10] VITALS: BP 135/105
== END 2021-08-24 17:10 | disposition home or self-care (01) ==
LOC: ED 13:04
DX: S09.93XA Unspecified injury of face, initial encounter (principal); S00.531A Contusion of lip, initial encounter; V43.52XA Car driver injured in collision with other type car in traffic accident, initial encounter; W22.11XA Striking against or struck by driver side automobile airbag, initial encounter
CPT/HCPCS: 99282; 99283

== ENCOUNTER 2021-10-16 07:15 | Outpatient (CLI) | payer OTHER ==
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
== END 2021-10-16 23:59 | disposition home or self-care (01) ==
LOC: DI.N 07:15
PROVIDERS: ATTEND Orthopaedic Surgery
DX: M17.12 Unilateral primary osteoarthritis, left knee (principal)

== ENCOUNTER 2022-05-04 08:00 | Outpatient (CLI) | payer OTHER ==
[2022-05-04 22:19] LABS: BACTERIAL VAGINOSIS DNA NEGATIVE (NEGATIVE); CANDIDA GLABRATA DNA NEGATIVE (NEGATIVE); CANDIDA GROUP DNA NEGATIVE (NEGATIVE); CANDIDA KRUSEI DNA NEGATIVE (NEGATIVE); TRICHOMONAS VAGINALIS DNA NEGATIVE (NEGATIVE)
== END 2022-05-04 23:59 | disposition home or self-care (01) ==
LOC: LAB.N 08:00
PROVIDERS: ATTEND Registered Nurse
DX: R30.0 Dysuria (principal)
CPT/HCPCS: 81514; 87077; 87086; 87181

== ENCOUNTER 2022-08-27 08:00 | Outpatient (CLI) | payer OTHER ==
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
== END 2022-08-27 23:59 | disposition home or self-care (01) ==
LOC: DI.N 08:00
PROVIDERS: ATTEND Nurse Practitioner
DX: S63.696A Other sprain of right little finger, initial encounter (principal)

== ENCOUNTER 2024-02-04 05:46 | Emergency (ER) | payer OTHER ==
[2024-02-04 06:13] LABS: BASOPHILS % (AUTO) 0.2 %; EOSINOPHILS # (AUTO) 0.2 10^3/uL (0.0-0.7); EOSINOPHILS % (AUTO) 1.6 %; LYMPHOCYTES # (AUTO) 1.5 10^3/uL (1.5-3.5); LYMPHOCYTES % (AUTO) 11.3 %; MEAN CORPUSCULAR HEMOGLOBIN 28.3 pg (27.0-31.0); MEAN CORPUSCULAR HGB CONC 31.8 g/dL (32.0-36.0); MEAN CORPUSCULAR VOLUME 88.9 fL (81.0-99.0); MEAN PLATELET VOLUME 9.3 fL (7.9-10.8); MONOCYTES # (AUTO) 0.8 10^3/uL (0.0-1.0); MONOCYTES % (AUTO) 6.5 %; NEUTROPHILS # (AUTO) 10.3 10^3/uL (1.5-6.6); NEUTROPHILS % (AUTO) 80.1 %; PLT - PLATELET COUNT 341 10^3/uL (130-450); RED BLOOD COUNT 4.95 10^6/uL (4.20-5.40); RED CELL DISTRIBUTION WIDTH 14.4 % (12.0-15.0); WHITE BLOOD COUNT 12.9 x10^3/uL (4.8-10.8)
[2024-02-04] MEDS ORDERED: iohexoL-300 100 ML VIAL ONE (06:13)
[2024-02-04] MEDS: SODIUM CHLORIDE 0.9% 1,000 ML IV STA (06:13)
--- NOTE | 2024-02-04 06:17 | ED Physician Documentation ---
PD HPI SYNCOPE - Stated complaint Stated Complaint: SYNCOPE/VOMITING - Chief complaint Chief Complaint: Abd Pain - History obtained from History obtained from: Patient - History of Present Illness Witnessed: Unwitnessed Timing - onset: Today Duration: Minutes Preceding symptoms: Vision changes, Diaphoresis, Nausea / vomiting, Light headed, Generalized weakness Associated symptoms: Incontinant of urine, Incontinant of stool Contributing factors: Recent med change, Decreased PO intake, Just stood up Injury occurred: None Similar symptoms before: Has not had sx before Recently seen: Clinic - Additional information Additional information: Stephy Nieto is a 63-year-old female who has a prior history of diverticulitis and she has developed left lower quadrant abdominal pain about 4 days ago. She treated this initially with a liquid diet when her pain persisted and worsened she went to the urgent care clinic and today she was placed on Augmentin for treatment of diverticulitis. She has previously been treated with Cipro and Flagyl. She has not taken Augmentin previously to her knowledge. She took a single dose of this medication before going to bed At 10 PM and awoke at 3 AM feeling that she needed to vomit. She went into the bathroom she vomited and she collapsed. She had diarrhea liquid and she lost her urine as well. She was able to get into the shower and get cleaned up. She was discovered by her who heard her fall against the door. The patient has no memory of the collapse itself.She denies any chest pain associated with this or palpitations.She is now without nausea. She has some improvement in her pain but has persistence of left lower quadrant pain. Review of Systems Constitutional: denies: Fever Eyes: denies: Decreased vision Ears: denies: Ear pain Nose: denies: Rhinorrhea / runny nose, Congestion Throat: denies: Sore throat Cardiac: denies: Chest pain / pressure, Palpitations Respiratory: denies: Dyspnea, Cough GI: reports: Abdominal Pain, Nausea, Vomiting, Diarrhea : denies: Dysuria, Frequency Skin: denies: Rash Musculoskeletal: denies: Neck pain, Back pain, Extremity pain PD PAST MEDICAL HISTORY - Past Medical History Past Medical History: Yes Cardiovascular: Hypertension, High cholesterol, Other Respiratory: Sleep apnea Neuro: None Endocrine/Autoimmune: Type 2 diabetes GI: GERD, Diverticulitis TOPOGRAPHICAL DRAFTER: None : None HEENT: None Psych: None Musculoskeletal: Fibromyalgia, Other Derm: None - Past Surgical History Past Surgical History: Yes Ortho: Other /TOPOGRAPHICAL DRAFTER: Hysterectomy, LEEP (Cervical surgery) HEENT: Tonsil/Adenoidectomy - Present Medications Home Medications: Ambulatory Orders Medication Instructions Recorded Confirmed Atorvastatin Calcium [Lipitor] 40 mg PO DAILY 11/02/15 02/04/24 EPINEPHrine [Epipen 2-Saman] 1 unit IM PRN PRN 11/02/15 08/24/21 Venlafaxine [Effexor] 75 mg PO DAILY 11/02/15 02/04/24 Estrogens, Conjugated [Premarin] 0.625 mg PO Q14D 08/29/17 07/16/22 Losartan [Cozaar] 50 mg PO DAILY 08/24/21 02/04/24 ALPRAZolam [Alprazolam] 0.5 mg PO BID PRN 07/16/22 02/04/24 Calcium Carbonate/Vitamin D3 1 each PO DAILY 07/16/22 07/16/22 [Calcium 600 mg-D3 10 Mcg Sfgl] Folic Acid 3 mg PO DAILY 07/16/22 07/16/22 Omeprazole Magnesium 20 mg PO DAILY 07/16/22 02/04/24 hydrOXYzine HCL [Hydroxyzine HCl] 10 mg PO QID PRN 07/16/22 02/04/24 Amlodipine Besylate [Norvasc] 2.5 mg PO DAILY 02/04/24 02/04/24 Amoxicillin/Potassium Clav 1 each PO BID 02/04/24 02/04/24 [Augmentin Xr 1,000-62.5 Tab] Fluticasone [Flonase] 1 sprays FELIPA BID PRN 02/04/24 02/04/24 Loratadine [Claritin] 10 mg PO DAILY 02/04/24 02/04/24 Methotrexate [Methotrexate Sodium] 2.5 mg PO DAILY 02/04/24 02/04/24 - Allergies Allergies/Adverse Reactions: Allergies Allergy/AdvReac Type Severity Reaction Status Date / Time iodine Allergy Anaphylaxis Verified 02/04/24 05:59 naproxen Allergy Hives Verified 02/04/24 05:59 shellfish derived Allergy Anaphylaxis Verified 02/04/24 05:59 codeine AdvReac Nausea Verified 02/04/24 05:59 - Social History Does the pt smoke?: No Smoking Status: Never smoker Does the pt drink ETOH?: Yes ETOH Use: Wine Does the pt have substance abuse?: No - Immunizations Immunizations are current?: Yes - POLST Patient has POLST: No PD ED PE NORMAL - Vitals Vital signs reviewed: Yes (hypertensive ) - General General: Alert and oriented X 3, No acute distress, Well developed/nourished, Other (pleasant 63 y/o female in no distress. 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 Relevant findings are: Rate: Rate (enter#) (76) Rhythm: NSR Ischemia: Q waves Compare to prior EKG: Old EKG unavailable Computer interpretation: Agree with computer - Labs Labs: Laboratory Tests 02/04/24 02/04/24 02/04/24 05:57 05:57 05:57 WBC 12.9 H RBC 4.95 Hgb 14.0 Hct 44.0 MCV 88.9 MCH 28.3 MCHC 31.8 L RDW 14.4 Plt Count 341 MPV 9.3 Neut # (Auto) 10.3 H Lymph # (Auto) 1.5 [place] # (Auto) 0.8 Eos # (Auto) 0.2 Baso # (Auto) 0.0 Absolute Nucleated RBC 0.00 Nucleated RBC % 0.0 Sodium 138 Potassium 3.4 L Chloride 102 Carbon Dioxide 26 Anion Gap 10.0 BUN 13 Creatinine 0.8 Estimated GFR (MDRD) 73 L Glucose 170 H Calcium 10.7 H Total Bilirubin 1.0 AST 23 ALT 32 Alkaline Phosphatase 76 Troponin I High Sens 4.6 Total Protein 7.6 Albumin 4.8 Globulin 2.8 Albumin/Globulin Ratio 1.7 Lipase 27 Procedures - IVC sono (time) 0605 Bedside IVC sono: IVC measures (cm) (1.02), IVC collapsed c insp (cm) (complete), Dehydration (est 1-2 liter deficit) PD Medical Decision Making - ED course Complexity details: reviewed old records, reviewed results, re-evaluated patient, considered differential, d/w patient Reviewed Lab Results: We reviewed a complete blood count showing a white blood cell count elevated at 12.9 with normal hemoglobin hematocrit and platelets chemistries showed normal electrolytes with the exception of potassium decreased at 3.4. Sugar was elevated at 170 liver functions normal kidney function normal high-sensitivity troponin normal at 4.6. I interpret these laboratory values to indicate possibility of infection with mildly elevated white blood cell count and what appears to be an acute hypokalemia which is mild. These laboratory values are consistent with the possibility of the proposed diagnosis of diverticulitis. ED course: Stephy Nieto presents to the emergency department this morning after a syncopal episode related to vomiting and diarrhea. I suspect that the vomiting and diarrhea may be related to her administration of Augmentin. She is found to be dehydrated on interrogation of the inferior vena cava with POCUS she is administered saline and CT scan of the abdomen pelvis is obtained. Her blood work is consistent with the possibility of diverticulitis with a mildly elevated white blood cell count. At shift change the read on the CT of her abdomen is pending and her care is turned over to Dr. Ferguson. Departure - Departure Forms: PCP List
[2024-02-04 06:24] LABS: ALBUMIN 4.8 g/dL (3.2-5.5); ALBUMIN/GLOBULIN RATIO 1.7 (1.0-2.2); CALCIUM 10.7 mg/dL (8.5-10.3); CREATININE 0.8 mg/dL (0.6-1.3); POTASSIUM 3.4 mmol/L (3.5-4.5); TOTAL PROTEIN 7.6 g/dL (6.4-8.9)
[2024-02-04 07:23] LABS: BILIRUBIN,URINE NEGATIVE (NEGATIVE); GLUCOSE, URINE (UA) >=1000 mg/dL (NEGATIVE); KETONES,URINE (UA) 15 mg/dL (NEGATIVE); LEUKOCYTE ESTERASE, URINE NEGATIVE (NEGATIVE); NITRITE,URINE NEGATIVE (NEGATIVE); OCCULT BLOOD,URINE NEGATIVE (NEGATIVE); PROTEIN,URINE NEGATIVE (NEGATIVE); UROBILINOGEN,URINE 1 (NORMAL) E.U./dL (NORMAL)
[2024-02-04 07:27] LABS: CLARITY,URINE CLEAR (CLEAR)
--- NOTE | 2024-02-04 09:20 | CT Report ---
PROCEDURE: Abdomen/Pelvis WO INDICATIONS: LLQ pain TECHNIQUE: A CT scan of the abdomen and pelvis was performed without the use of intravenous contrast. Images we re recorded and evaluated at appropriate window settings. Reformats: coronal and sagittal. For radiat ion dose reduction, the following was used: automated exposure control, adjustment of mA and/or kV ac cording to patient size. COMPARISON: 07/16/2022. 06/12/2020, 08/29/2017 FINDINGS: Image quality: Diagnostic. Lower chest: Unremarkable. Liver: No contour-deforming mass. There is hepatic steatosis. Subtle 1.3 cm hypodensity involving rig ht hepatic lobe adjacent to gallbladder fossa series 2 image 31 better delineated on the current stud y compared to prior study in 2021, 2019, 2019, 08/22/2017 and is essentially stable in size and appea shayy. Gallbladder and biliary tree: No radiopaque stones or wall thickening. No biliary dilation. Spleen: No splenomegaly. Small exophytic hypodense structure in posterior aspect of upper spleen sylvie ures 1.2 cm in size stable dating back to 2017 study. Pancreas: No pancreatic ductal dilation. Adrenals: No adrenal nodule. Kidneys and ureters: No hydronephrosis. No renal cystic lesion which requires follow up. No solid mas s. Stomach, bowel and peritoneum: Colonic diverticulosis is seen. There is mild wall thickening and dottie colonic fat stranding involving distal descending colon/proximal sigmoid colon in left lower quadrant concerning for acute diverticulitis. No discrete drainable abscess collection. No peritoneal free fl uid of free air. No other area of abnormal bowel wall thickening. No bowel obstruction. Lymph nodes: No central or retroperitoneal adenopathy. Vessels: No infrarenal aortic aneurysm. PELVIS Reproductive organs: Unremarkable. Bladder: No wall thickness, accounting for underdistention. Pelvic lymph nodes: No pelvic adenopathy by size criteria. Bones: No aggressive osseous abnormality. Bilateral pars defects are noted at L5 level with 4 mm ante rolisthesis of L5 on S1. No acute vertebral body compression fracture. Other: There is a small umbilical hernia containing fat only. Postsurgical changes also noted in left anterior lower abdominal/pelvic wall. Small left inguinal hernia is seen containing fat. IMPRESSION: 1. Finding is consistent with mild distal descending colon/proximal sigmoid colon diverticulitis. No signs of perforation. No abscess collection. 2. No bowel obstruction or abnormal bowel wall thickening. No free fluid of free air. 3. Subtle 1.3 cm hypodense area within segment one of liver better delineated on the current study ho wever is stable dating back to 2017 consistent with a benign process. 4. Likely exophytic cyst in posterior aspect of spleen measures 1.2 cm in size also stable dating abraham k to 2016 study suggestive of benign process. 5. No calcified gallstones are gallbladder wall thickening. No significant discrepancies from preliminary readings. Reviewed by: Peter Martinez MD on 02/04/2024 9:18 AM PDT Approved by: Peter Martinez MD on 02/04/2024 9:18 AM PDT Station ID: [id number]
--- NOTE | 2024-02-04 09:52 | ED Physician Documentation ---
ED Addendum - Addendum Addendum: 02/04/24 09:47 The patient was awaiting CT results at the time of shift change. This did come back subsequently after an hour and a half or so showing uncomplicated diverticulitis. Incidental note was some cysts in the spleen and liver. The patient was not aware of these. Looking at prior imaging results Did not comment on the presence of any solid organ abnormalities/cysts. The patient's pain is minimal at this time. His sounds more like she had a side effect to the Augmentin rather than complication of worsening diverticulitis. Will change her from the Augmentin to something else. She states a previous prescription to cause some joint pains. It looks like it was Cipro in combination with the Flagyl from last year. I can change her to a combination of Flagyl with Keflex. She should continue with the Tylenol. She takes methotrexate so likely hold this while she is on the antibiotic and I would still suggest avoiding NSAIDs. Stay well-hydrated and continue her Metamucil. 02/04/24 09:52 Disposition: The patient discharged home in stable condition. Diagnoses: 1. Left-sided abdominal pain 2. Acute uncomplicated diverticulitis 3. Abdominal cramping nausea and vomiting from medication adverse effect
[2024-02-04] MEDS: KETOROLAC 15 MG/ML VIAL IVP STA (09:54)
[2024-02-04] MEDS: metroNIDAZOLE 250 MG TABLET PO STA (09:54)
[2024-02-04] MEDS: cefTRIAXone 1 GM VIAL IVP STA (10:06)
[2024-02-04 10:10] VITALS: BP 120/74; O2SAT 97
== END 2024-02-04 10:22 | disposition home or self-care (01) ==
LOC: ED 05:46
DX: K57.92 Diverticulitis of intestine, part unspecified, without perforation or abscess without bleeding (principal); R11.2 Nausea with vomiting, unspecified; R10.32 Left lower quadrant pain; T36.0X5A Adverse effect of penicillins, initial encounter; T36.1X5A Adverse effect of cephalosporins and other beta-lactam antibiotics, initial encounter; I10 Essential (primary) hypertension; E78.00 Pure hypercholesterolemia, unspecified; E11.9 Type 2 diabetes mellitus without complications; Z79.899 Other long term (current) drug therapy
CPT/HCPCS: 36415; 74176; 80053; 81003; 83690; 84484; 85025; 93005; 96361; 96374; 96375; 99284; A9270; 81001; 87086